=== PATIENT | female | born 1995 ===

== ENCOUNTER 2016-08-06 12:33 | Emergency (ER) | payer OTHER ==
[2016-08-06 12:33] VITALS: BMI 21.9
[2016-08-06 12:41] VITALS: BP 119/69; PULSE 89; RESP 18; TEMP 98.4; O2SAT 100
[2016-08-06] MEDS ORDERED: Tmp-Smz 800 mg-160 mg DS Tab PO STA (13:21)
--- NOTE | 2016-08-06 13:23 | C.PDOC ---
History Of Present Illness 21 year old female presents to the emergency room with complaints of small painful bumps on her posterior thighs and buttocks for several days. Patient reports that boyfriend has also started to develop these bumps. Patient denies any fever, drainage, injuries, nausea/vomiting. Patient is , delivered baby on 05/2016, not currently breast feeding. Time Seen by Provider: 08/06/16 12:48 Chief Complaint (Nursing): Abnormal Skin Integrity History Per: Patient History/Exam Limitations: no limitations Onset/Duration Of Symptoms: Days (Several days) Current Symptoms Are (Timing): Still Present Location Of Injury: Right: Buttock, Thigh, Left: Buttock, Thigh, Posterior: Buttock, Thigh Quality Of Symptoms: Painful. denies: Itching, Swollen, Draining Severity: Mild Recent travel outside of the [place]: No Past Medical History Reviewed: Historical Data, Nursing Documentation, Vital Signs Vital Signs: Last Vital Signs Temp 98.4 F 08/06/16 12:37 Pulse 89 08/06/16 12:37 Resp 18 08/06/16 12:37 BP 119/69 08/06/16 12:37 Pulse Ox 100 08/06/16 14:48 Surgical History: Tonsillectomy - [facility] Procedures DELIVERY OF PRODUCTS OF CONCEPTION, EXTERNAL APPROACH (05/30/16) Family History: States: No Known Family Hx - Social History Hx Alcohol Use: No Hx Substance Use: No - Immunization History Hx Tetanus Toxoid Vaccination: No Hx Influenza Vaccination: No Hx Pneumococcal Vaccination: No Review Of Systems Except As Marked, All Systems Reviewed And Found Negative. Constitutional: Negative for: Fever, Chills Cardiovascular: Negative for: Chest Pain, Palpitations Gastrointestinal: Negative for: Nausea, Vomiting, Diarrhea Skin: Positive for: Other (Small bumps on posterior thighs and buttocks.). Negative for: Rash Physical Exam - Physical Exam Appears: Well, Non-toxic, No Acute Distress Skin: No Rash, No Ecchymosis, Other (Scattered small pustules on the upper posterior thighs and buttocks.) Head: Normacephalic Eye(s): bilateral: Normal Inspection Oral Mucosa: Moist Neck: Normal, Normal ROM Cardiovascular: Rhythm Regular Respiratory: Normal Breath Sounds, No Rales, No Rhonchi, No Wheezing Gastrointestinal/Abdominal: Normal Exam, Bowel Sounds, Soft, No Tenderness Back: Normal Inspection Extremity: Normal ROM, No Tenderness Extremity: Bilateral: Atraumatic, Normal Color And Temperature, Normal ROM Neurological/Psych: Oriented x3 Gait: Steady ED Course And Treatment O2 Sat by Pulse Oximetry: 100 (RA) Pulse Ox Interpretation: Normal Progress Note: Scattereds pustules noted - likely due to MRSA. Patient given PO Bactrim & Motrin in ED, as well as Rx for same. She was instructed to follow up with PMD/clinic in 1-2 days, and understands she should return to ED if symptoms worsen. Disposition Counseled Patient/Family Regarding: Diagnosis, Need For Followup, Rx Given - Disposition Referrals: [facility] at [facility] [Outside] Disposition: HOME/ ROUTINE Disposition Time: 13:25 Condition: STABLE Additional Instructions: FOLLOW UP IN THE MEDICAL CLINIC IN 1-2 DAYS USE MEDICATIONS DIRECTED, AND FINISH ALL ANTIBIOTICS RETURN TO ER IF SYMPTOMS WORSEN Prescriptions: Ibuprofen [Motrin Tab] 600 mg PO Q6 PRN #20 tab PRN Reason: Pain, Mild (1-3) Sulfamethoxazole/Trimethoprim [Bactrim DS 800 mg-160 mg] 1 tab PO BID #14 tab Instructions: Furunculosis and Carbunculosis (ED) Print Language: DOMINICAN - POA Present On Arrival: None - Clinical Impression Clinical Impression: Pustule - Scribe Statement The provider has reviewed the documentation as recorded by the Franciscoibcrystal Silverio All medical record entries made by the Jaquan were at my direction and personally dictated by me. I have reviewed the chart and agree that the record accurately reflects my personal performance of the history, physical exam, medical decision making, and the department course for this patient. I have also personally directed, reviewed, and agree with the discharge instructions and disposition.
[2016-08-06] MEDS ORDERED: Tmp-Smz 800 mg-160 mg DS Tab ONE (13:27)
== END 2016-08-06 13:40 | disposition home or self-care (01) ==
LOC: C.ER 12:33
DX: L08.9 Local infection of the skin and subcutaneous tissue, unspecified (principal)

== ENCOUNTER 2017-11-04 15:23 | Emergency (ER) | payer MEDICAID, OTHER ==
[2017-11-04 15:23] VITALS: BMI 21.9
[2017-11-04 15:43] VITALS: TEMP 99; O2SAT 98
[2017-11-04] MEDS ORDERED: Sodium Chloride 0.9% 1,000 ML IV STA (15:54)
[2017-11-04 16:16] LABS: BASO # 0.1 K/uL (0.0-0.2); BASO % 0.5 % (0.0-2.0); EOS # 0.2 K/uL (0.0-0.7); EOS % 1.7 % (0.0-4.0); HEMOGLOBIN 11.6 g/dL (11.0-16.0); LYMPH # 3.1 K/uL (1.0-4.3); LYMPH % 25.7 % (20.0-40.0); MEAN CELL VOLUME 84.6 fL (81.0-99.0); MEAN CORPUSCULAR HEMOGLOBIN 27.8 pg (27.0-31.0); MEAN CORPUSCULAR HGB CONC 32.9 g/dL (33.0-37.0); MEAN PLATELET VOLUME 8.2 fL (7.2-11.7); MONO % 8.1 % (0.0-10.0); NEUT # 7.6 K/uL (1.8-7.0); NRBC % 0.1 % (0.0-2.0); RBC 4.19 Mil/uL (3.80-5.20); WHITE BLOOD COUNT 11.9 K/uL (4.8-10.8)
[2017-11-04] MEDS ORDERED: Sodium Chloride 0.9% 1,000 ML ONE (16:26)
[2017-11-04 16:28] LABS: ALB/GLOB RATIO 1.3 (1.0-2.1); ALBUMIN 4.6 g/dL (3.5-5.0); ALT/SGPT 42 U/L (9-52); AST/SGOT 19 U/L (14-36); BLOOD UREA NITROGEN 12 mg/dL (7-17); CALCIUM 9.6 mg/dl (8.6-10.4); GFR AFRICAN-AMERICAN > 60; GFR NON-AFRICAN AMERICAN > 60
--- NOTE | 2017-11-04 16:55 | C.PDOC ---
History Of Present Illness 22yo female, comes to ER for evaluation of redness and pain to her left anterior thigh. Patient states 2 days ago, she had a "pimple" in her left anterior thigh and she squeezed it, after which the redness spread. She now reports pain and warmth to the area. Patient denies any associated fever or chills. She also denies any known bug/tick bite to the area. Time Seen by Provider: 11/04/17 15:50 Chief Complaint (Nursing): Groin Pain History Per: Patient History/Exam Limitations: no limitations Onset/Duration Of Symptoms: Days (2) Current Symptoms Are (Timing): Still Present Location Of Injury: Left: Thigh, Anterior: Thigh Quality Of Symptoms: Painful Additional History Per: Patient Past Medical History Reviewed: Historical Data, Nursing Documentation, Vital Signs Vital Signs: Last Vital Signs Temp 99.0 F 11/04/17 15:40 Pulse 111 H 11/04/17 15:40 Resp 18 11/04/17 15:40 BP 114/70 11/04/17 15:40 Pulse Ox 98 11/04/17 17:11 - Medical History PMH: No Chronic Diseases Surgical History: Tonsillectomy - [facility] Procedures DELIVERY OF PRODUCTS OF CONCEPTION, EXTERNAL APPROACH (05/30/16) Family History: States: No Known Family Hx, Unknown Family Hx - Social History Hx Alcohol Use: No Hx Substance Use: No - Immunization History Hx Tetanus Toxoid Vaccination: No Hx Influenza Vaccination: No Hx Pneumococcal Vaccination: No Review Of Systems Except As Marked, All Systems Reviewed And Found Negative. Constitutional: Negative for: Fever, Chills Skin: Positive for: Other (area of redness, pain and warmth to left anterior thigh) Physical Exam - Physical Exam Appears: Non-toxic, No Acute Distress Skin: Other (large area of erythema, 19cm by 15cm, center sparing, target like, noted to left anterior thigh. ) Head: Normacephalic Eye(s): bilateral: Normal Inspection Neck: Supple Cardiovascular: Rhythm Regular Respiratory: Normal Breath Sounds Extremity: Normal ROM, No Pedal Edema, No Calf Tenderness, No Deformity Neurological/Psych: Oriented x3, Normal Speech, Normal Cognition, Normal Motor, Normal Sensation ED Course And Treatment - Laboratory Results Result Diagrams: 11/04/17 16:13 11/04/17 16:13 O2 Sat by Pulse Oximetry: 98 (RA) Pulse Ox Interpretation: Normal Progress Note: Physical exam findings indicative for cellulitis but cannot rule out erythema migrans. Labs, including immunoglobulins ordered. Patient given Doxycycline IVPB and IV fluids. Labs reviewed, patient with mildly elevated white count. Area of erythema margined and patient to be discharged home with prescription for doxycycline. Patient instructed to return to the ER in 2 days for a follow up. Disposition - Disposition Referrals: [facility] at [facility] [Outside] Disposition: HOME/ ROUTINE Disposition Time: 17:11 Condition: STABLE Additional Instructions: Follow up in Clinic within 1-2 days. Return to ED if feel worse. Return to ED in 2 days for re-evaluation. Prescriptions: Doxycycline Hyclate [Doryx] 100 mg PO BID #28 cap Instructions: Cellulitis (Skin Infection), Adult (DC) Forms: [employer] (Vietnamese) - Clinical Impression Clinical Impression: Cellulitis - PA / ACCOUNTING LECTURER / Resident Statement MD/DO has reviewed & agrees with the documentation as recorded. - Scribe Statement The provider has reviewed the documentation as recorded by the Jaquan Waters Provider Attestation: All medical record entries made by the Jaquan were at my direction and personally dictated by me. I have reviewed the chart and agree that the record accurately reflects my personal performance of the history, physical exam, medical decision making, and the department course for this patient. I have also personally directed, reviewed, and agree with the discharge instructions and disposition.
[2017-11-04 17:17] LABS: SQUAMOUS EPITHIAL 2 /hpf (0-5); URINE BILIRUBIN NEGATIVE (NEGATIVE); URINE BLOOD NEGATIVE (NEGATIVE); URINE CLARITY Clear (Clear); URINE COLOR Yellow (YELLOW); URINE GLUCOSE (UA) NORMAL (Normal); URINE LEUKOCYTE ESTERASE NEG Leu/uL (Negative); URINE PROTEIN NEGATIVE (NEGATIVE)
[2017-11-04 17:19] LABS: HCG,QUALITATIVE URINE NEGATIVE (NEGATIVE)
[2017-11-04 17:49] VITALS: BP 105/72; PULSE 80; RESP 16
[2017-11-04 22:02] LABS: LYME IGM NEGATIVE (NEGATIVE)
[2017-11-04 22:04] LABS: LYME IGG NEGATIVE (NEGATIVE)
== END 2017-11-04 17:46 | disposition home or self-care (01) ==
LOC: C.ER 15:23
DX: L03.116 Cellulitis of left lower limb (principal)
CPT/HCPCS: 80053; 81001; 84703; 85025; 86618; 87040; 96365; 99282; J7030

== ENCOUNTER 2017-11-06 11:06 | Emergency (ER) | payer MEDICAID ==
[2017-11-06 11:21] VITALS: BMI 21.7
[2017-11-06 11:24] VITALS: RESP 18
[2017-11-06 12:53] LABS: HCG,QUALITATIVE URINE NEGATIVE (NEGATIVE)
--- NOTE | 2017-11-06 12:53 | C.PDOC ---
History Of Present Illness 22 y/o female presents to ED with c/o erythema and swelling to anterior thigh for 4 days. Patient was diagnosed with cellulitis 2 days ago from insect bite and given Doxycycline. Patient reports wound was traced and erythema passed traced edges prompting visit to ED today. Patient denies fever, leg weakness or any other complaints at this time. Time Seen by Provider: 11/06/17 11:45 Chief Complaint (Nursing): Abnormal Skin Integrity History Per: Patient History/Exam Limitations: no limitations Onset/Duration Of Symptoms: Days Current Symptoms Are (Timing): Still Present Past Medical History Reviewed: Historical Data, Nursing Documentation, Vital Signs Vital Signs: Last Vital Signs Temp 98 F 11/06/17 14:51 Pulse 87 11/06/17 14:51 Resp 18 11/06/17 14:51 BP 136/72 11/06/17 14:51 Pulse Ox 98 11/06/17 14:51 - Medical History PMH: No Chronic Diseases Surgical History: Tonsillectomy - [facility] Procedures DELIVERY OF PRODUCTS OF CONCEPTION, EXTERNAL APPROACH (05/30/16) Family History: States: No Known Family Hx - Social History Hx Alcohol Use: No Hx Substance Use: No - Immunization History Hx Tetanus Toxoid Vaccination: No Hx Influenza Vaccination: No Hx Pneumococcal Vaccination: No Review Of Systems Constitutional: Negative for: Fever, Chills Gastrointestinal: Negative for: Nausea, Vomiting Musculoskeletal: Positive for: Leg Pain Skin: Positive for: Rash Physical Exam - Physical Exam Appears: Non-toxic, No Acute Distress Skin: Warm, Dry, Other (1cm insect bite with surrounding erythema and swelling to anterior left thigh. ) Head: Atraumatic, Normacephalic Eye(s): bilateral: Normal Inspection Oral Mucosa: Moist Neck: Supple Cardiovascular: Rhythm Regular Respiratory: Normal Breath Sounds, No Rales, No Rhonchi, No Wheezing Gastrointestinal/Abdominal: Soft, No Tenderness, No Guarding, No Rebound Extremity: No Pedal Edema, Capillary Refill (<2 seconds) Extremity: Bilateral: Normal ROM Pulses: Left Femoral: Normal Neurological/Psych: Oriented x3, Normal Motor, Normal Sensation ED Course And Treatment - Laboratory Results Result Diagrams: 11/06/17 12:45 O2 Sat by Pulse Oximetry: 99 (RA) Pulse Ox Interpretation: Normal Medical Decision Making Medical Decision Making: Old records viewed: Patient seen 21 days ago and discharged on Doxycycline Progress: D/w Dr. Pedroza, agrees to change antibiotics to Keflex and bactrim to cover MRSA. Disposition - Disposition Referrals: [facility] at [facility] [Outside] Disposition: HOME/ ROUTINE Disposition Time: 14:00 Condition: FAIR Additional Instructions: Follow up with the medical doctor within 1-2 days. Return if worsened. Prescriptions: Cephalexin [Keflex] 500 mg PO BID #19 capsule Sulfamethoxazole/Trimethoprim [Bactrim DS 800 mg-160 mg] 1 tab PO BID #14 tab Instructions: Cellulitis (Skin Infection), Adult (DC) Forms: [employer] (Indonesian) - Clinical Impression Clinical Impression: Cellulitis - PA / PEARL MAKER / Resident Statement MD/DO has reviewed & agrees with the documentation as recorded. - Scribe Statement The provider has reviewed the documentation as recorded by the Scribcrystal Ervin All medical record entries made by the Franciscoibcrystal were at my direction and personally dictated by me. I have reviewed the chart and agree that the record accurately reflects my personal performance of the history, physical exam, medical decision making, and the department course for this patient. I have also personally directed, reviewed, and agree with the discharge instructions and disposition.
[2017-11-06 12:56] LABS: SQUAMOUS EPITHIAL 9 /hpf (0-5); URINE BACTERIA RARE (<OCC); URINE BILIRUBIN NEGATIVE (NEGATIVE); URINE BLOOD 2+ (NEGATIVE); URINE CLARITY Clear (Clear); URINE COLOR Yellow (YELLOW); URINE GLUCOSE (UA) NORMAL (Normal); URINE LEUKOCYTE ESTERASE NEG Leu/uL (Negative); URINE PROTEIN NEGATIVE (NEGATIVE); URINE UROBILINOGEN NORMAL mg/dL (0.2-1.0)
[2017-11-06 13:18] LABS: BASO # 0.1 K/uL (0.0-0.2); BASO % 0.6 % (0.0-2.0); EOS # 0.1 K/uL (0.0-0.7); EOS % 1.1 % (0.0-4.0); HEMOGLOBIN 11.7 g/dL (11.0-16.0); LYMPH # 2.4 K/uL (1.0-4.3); LYMPH % 26.6 % (20.0-40.0); MEAN CELL VOLUME 84.6 fL (81.0-99.0); MEAN CORPUSCULAR HEMOGLOBIN 28.1 pg (27.0-31.0); MEAN CORPUSCULAR HGB CONC 33.2 g/dL (33.0-37.0); MEAN PLATELET VOLUME 8.9 fL (7.2-11.7); MONO # 0.6 K/uL (0.0-0.8); MONO % 7.1 % (0.0-10.0); NEUT # 5.8 K/uL (1.8-7.0); NEUT % 64.6 % (50.0-75.0); RBC 4.18 Mil/uL (3.80-5.20); RED CELL DISTRIBUTION WIDTH 13.9 % (11.5-14.5); WHITE BLOOD COUNT 8.9 K/uL (4.8-10.8)
[2017-11-06] MEDS ORDERED: Tmp-Smz 800 mg-160 mg DS Tab PO STA (13:47)
[2017-11-06] MEDS ORDERED: Tmp-Smz 800 mg-160 mg DS Tab ONE (14:03)
[2017-11-06 14:54] VITALS: BP 136/72; PULSE 87; TEMP 98
[2017-11-07 22:45] VITALS: O2SAT 99
== END 2017-11-06 14:54 | disposition home or self-care (01) ==
LOC: C.ER 11:06
DX: L03.116 Cellulitis of left lower limb (principal)